=== PATIENT | male | born 1975 | race African-American/Black ===

== ENCOUNTER 2019-08-29 23:39 | Emergency (ER) | payer SELFPAY ==
[~2019-08-29] VITALS: Ht 175.3 cm; Wt 86.2 kg
--- NOTE | 2019-08-29 23:57 | NUR ---
Patient walked into ER with steady gait A/Ox3 c/o head numbness and ZARCO for 2 months. Patient states symptoms is provoke after eating. o cardiovascular concern. In no acute respiratory distress. No /GI concern.
--- NOTE | 2019-08-29 23:58 | NUR ---
Dr. Lam on bedside for MSE.
--- NOTE | 2019-08-30 00:16 | NUR ---
Pt ambulated out of the ER with steady gait. All belongings with pt. Refused to sign discharge paper.
[2019-08-30 00:17] VITALS: BP 122/61
== END 2019-08-30 00:18 | disposition home or self-care (01) ==
LOC: ER 23:45
DX: R20.0 Anesthesia of skin (principal); Z60.2 Problems related to living alone
CPT/HCPCS: A4663